=== PATIENT | male | born 2000 | race Caucasian/White ===

== ENCOUNTER 2022-10-15 17:45 | Inpatient (IN) ==
--- NOTE | 2022-10-15 18:00 | ED Triage Note ---
Date of Service October 15, 2022 History of Present Illness This patient was briefly evaluated while in triage. An abbreviated physical exam was performed. This patient is a 22-year-old Male who presents to the ED for evaluation of fevers, joint pain, and nausea with some vomiting for 4-5 days. He was seen here 2 days ago and diagnosed with Lyme arthritis, has been taking doxycycline for this. He has not been able to keep medications down because of the vomiting. States has joint pain in his hips, knees, and ankles, so painful that he cannot walk. He is on medications for ulcerative colitis and also takes Truvada (unable to ask HIV status due to mother being present). Physical Exam CONSTITUTIONAL: No acute distress. Tacky mucus membranes. RESPIRATORY: Clear to auscultation bilaterally. Equal expansion bilaterally. CARDIOVASCULAR: Regular rate and rhythm with no murmurs, rubs or gallops. GASTROINTESTINAL: Soft, mildly tender throughout, normal bowel sounds. NEUROLOGIC: Alert and oriented X 4 with normal affect. Initial orders for labs and / or imaging were placed and patient was placed in the waiting area until a bed is available. Please see further documentation for the full ED course.
[2022-10-15] MEDS ORDERED: SODIUM CHLORIDE 0.9% 1000ML 1,000 ML IV STA (18:02)
[2022-10-15] MEDS ORDERED: ONDANSETRON 4 MG OD TAB PO STA (18:02)
[2022-10-15] MEDS ORDERED: ACETAMINOPHEN 500 MG TAB PO STA (18:02)
[2022-10-15 19:13] LABS: Hemoglobin 11.8 g/dl (14.0-18.0); Mean Corpuscular Hemoglobin 24.8 pg (25.0-34.0); Mean Corpuscular Hgb Conc 34.7 g/dL (32.0-36.0); Mean Corpuscular Volume 71.4 fL (80.0-100.0); Mean Platelet Volume 10.2 fL (9.4-12.4); Platelet Count 450 K/uL (130-400); RDW Coefficient of Variation 14.4 % (11.5-14.5); RDW Standard Deviation 36.8 fL (36.4-46.3); Red Blood Count 4.76 M/uL (4.70-6.10); White Blood Count 20.87 K/ul (4.8-10.8)
[2022-10-15 19:38] LABS: Anion Gap 12 (3-11); BUN Creatinine Ratio 11.9 (10-20); Blood Urea Nitrogen 8 mg/dl (6-23); C Reactive Protein 11.93 mg/dl (0-0.5); Calcium 8.7 mg/dl (8.6-10.3); Carbon Dioxide 21 mmol/L (21-32); Chloride 99 mmol/L (98-107); Est GFR (African American) > 150.0 ml/min; Est GFR (Non-African American) 138.3 ml/min; Glucose 93 mg/dl (70-99(Fasting)); Potassium 3.2 mmol/L (3.5-5.1); Sodium 132 mmol/L (136-145)
[2022-10-15 19:41] LABS: Basophils # (auto) 0.03 K/uL (0-0.2); Basophils % (auto) 0.1 %; Immature Granulocytes % (auto) 0.5 %; Lymphocytes # (auto) 0.99 K/uL (1.2-3.4); Lymphocytes % (auto) 4.7 %; Monocytes # (auto) 0.84 K/uL (0.11-0.59); Neutrophils # (auto) 18.91 K/uL (1.40-6.50); Neutrophils % (auto) 90.7 %; RBC Morphology Unremarkable
--- NOTE | 2022-10-15 19:46 | XRay Report ---
PA CHEST RADIOGRAPH AND UPRIGHT AND SUPINE AP RADIOGRAPHS OF THE ABDOMEN CLINICAL HISTORY: Fevers, nausea, vomiting. COMPARISON STUDY: KUB September 21, 2022. Chest radiograph October 13, 2022. FINDINGS: Lungs are clear. There is no pneumothorax or pleural effusion. Pulmonary vascularity is no rmal. Cardiac size is normal. Mediastinal contours are normal. There is no free air. The bowel gas pa ttern is normal. Left pelvic calcifications are unchanged and favor phleboliths. Visual skeletal stru ctures are unremarkable. IMPRESSION: 1. No free air or evidence of a bowel obstruction. 2. No acute cardiopulmonary findings. ACT 112: Negative or not required by law. Electronically signed by: Pato Rubin M.D. 10/15/2022 7:44 PM
[2022-10-15] MEDS ORDERED: DOXYCYCLINE HYCLATE 100 MG in DEXTROSE 5% 100 ML IV STA (19:51)
[2022-10-15] MEDS ORDERED: SODIUM CHLORIDE 0.9% 1000ML 1,000 ML IV ONE (19:51)
[2022-10-15 19:58] LABS: Alanine Aminotransferase 18 U/L (7-52); Albumin Globulin Ratio 0.9 (0.9-2); Albumin Level 3.6 gm/dl (3.4-5.0); Alkaline Phosphatase 74 U/L (34-104); Aspartate Aminotransferase 15 U/L (13-39); Bilirubin,Total 0.7 mg/dl (0.2-1.0); Lipase 1219 U/L (11-82); Total Protein 7.6 gm/dl (6.0-8.3); Troponin I High Sensitivity 140.6 pg/ml (0-20)
[2022-10-15 20:01] LABS: Adenovirus PCR Not Detected (NotDetected); Bordetella parapertussis PCR Not Detected (NotDetected); Bordetella pertussis PCR Not Detected (NotDetected); Chlamydia pneumoniae PCR Not Detected (NotDetected); Coronavirus 229E PCR Not Detected (NotDetected); Coronavirus CoV-2 (COVID19)PCR Not Detected (NotDetected); Coronavirus HKU1 PCR Not Detected (NotDetected); Coronavirus NL63 PCR Not Detected (NotDetected); Coronavirus OC43PCR Not Detected (NotDetected); Human Metapneumovirus PCR Not Detected (NotDetected); Influenza A PCR Not Detected (NotDetected); Influenza B PCR Not Detected (NotDetected); Mycoplasma pneumoniae PCR Not Detected (NotDetected); Parainfluenza Virus 1 PCR Not Detected (NotDetected); Parainfluenza Virus 2 PCR Not Detected (NotDetected); Parainfluenza Virus 3 PCR Not Detected (NotDetected); Parainfluenza Virus 4 PCR Not Detected (NotDetected); Respiratory Syncytial VirusPCR Not Detected (NotDetected); Rhinovirus/Enterovirus PCR Not Detected (NotDetected)
[2022-10-15 20:14] LABS: Appearance Urine Clear (Clear); Blood Urine Negative (Negative); Color Urine Orange; Epithelial Cell Urine Auto >30 /lpf (0-5); Glucose Urine UA Negative (Negative); Ketones Urine 3+ (Negative); Leukocyte Esterase Urine 1+ (Negative); Nitrite Urine Positive (Negative); Protein Urine 1+ (Negative); RBC Urine Automated 0-4 /hpf (0-4); Specific Gravity Urine 1.026 (1.000-1.030); Urobilinogen Urine Negative (Negative); WBC Urine Automated >30 /hpf (0-5)
[2022-10-15] MEDS ORDERED: CEFEPIME 2,000 MG/20 ML VIAL IV STA (20:17)
[2022-10-15] MEDS ORDERED: VANCOMYCIN HCL 1,000 MG in SODIUM CHLORIDE 0.9% 250 ML IV STA (20:17)
[2022-10-15] MEDS ORDERED: VANCOMYCIN CONSULT ACTIVE PRN (20:17)
[2022-10-15 20:20] LABS: Bilirubin Urine 1+ (Negative)
--- NOTE | 2022-10-15 20:28 | Emergency Department Note ---
Impression & Plan Fever, Sepsis, Acute UTI (urinary tract infection), Acute pancreatitis, Non-ST elevation CT (NSTEMI), Elevated procalcitonin, Leukocytosis ED Provider Note HISTORY OF PRESENT ILLNESS: Patient is a 22-year-old male presenting with recurrent fever and body aches. Patient reports he been having recurrent fevers for the last 6 days. He is also been complaining of generalized arthralgias and abdominal pain. He was seen in the emergency department 2 days ago and diagnosed with Lyme's disease. He reports he has been unable to tolerate his doxycycline secondary to recurrent episodes of vomiting. He reports his temperatures been up to 103. He has developed a diffuse headache throughout the weekend, but denies any change in vision. Denies any pain with range of motion of the neck. He denies any recent exposure to sick contacts. He has a history of Crohn's disease and is on mesalamine and steroids. He reports that he has been vomiting up his steroids over the last few days. ROS: as above PHYSICAL EXAM: Constitutional: Patient appears in mild distress. Patient is ill-appearing HENT: Head: Normocephalic and atraumatic. Eyes: EOMI, PERRL Mouth/Throat: Mucous membranes dry. Neck: Trachea midline. Neck supple. Full range of motion of the neck without meningismus Cardiovascular: Tachycardic with regular rhythm. No murmurs, rubs or gallops. Intact distal pulses. Pulmonary/Chest: No respiratory distress. Breath sounds clear and equal bilaterally. No wheezes or rales. Abdominal: BS +. Abdomen soft, no rebound or guarding. Generalized TTP Musculoskeletal: No edema, tenderness or deformity noted. Skin: Warm and dry. No rash, erythema, pallor or cyanosis Psychiatric: Appropriate mood and affect for situation. Neurological: Alert and keenly responsive. CN II-XII grossly intact, moving all extremities equally and fully. MDM: - Vitals signs showed fever and tachycardia. - History obtained via patient. Patient presents with recurrent fevers and body aches. Patient reports he has been having recurrent fevers for the last 6 days. Reports generalized arthralgias and abdominal pain. He has been unable to tolerate oral intake secondary to recurrent episodes of vomiting. His tempera tures up to 103 earlier today. - Chronic conditions affecting care: Crohn's disease - Differential diagnoses include, but are not limited to: pneumonia; UTI; viral syndrome; cholecystitis; appendicitis - Order placed for continuous cardiac monitoring. At this time, monitor showed rate of 103 bpm with normal sinus rhythm, per my interpretation. - External medical records reviewed. Showed positive Lyme IgG. - EKG reviewed by myself showed normal sinus rhythm. Rate tachycardic at 119 bpm. No acute ischemic changes. QTc 410. No evidence of heart block. - Laboratory workup interpreted by myself showed leukocytosis (WBC 20.87) with left shift; thrombocytosis (plt 450); elevated ESR (75); hypokalemia (K 3.2); hyponatremia (Na 132); elevated anion gap (12 - likely from dehydration); normal glucose; normal creatinine; normal lactate; normal liver function tests; elevated CRP (11.93); elevated troponin (140.6); elevated lipase (1219) - UA positive for leukocyte esterase and nitrites. Also has ketonuria. - Upper respiratory panel negative. - CXR negative for acute pneumonia, per my interpretation. - Given patient's abdominal pain symptoms, CT abdomen/pelvis with IV contrast ordered and showed evidence of acute pancreatitis. - Blood cultures obtained. - Patient given 1g IV tylenol, 4 mg IV zofran and 1L NS in ER. Ordered an additional 1L NS and empiric antibiotic treatment with IV vancomycin, IV cefepime and IV doxycycline. - Discussion was had with social welfare administrator about patient's case and need for admission. - Hospitalist, Dr. Hopkins, consulted for admission. - Patient admitted to [facility] for further evaluation and management. I provided 46 minutes of critical care time to this patient's care outside of billable procedures ASSESSMENT AND PLAN: Diagnosis: sepsis; abdominal pain; pancreatitis; NSTEMI; elevated procalcitonin; leukocytosis; tachycardia; hypokalemia; UTI Plan: admit Past Med/Surg History Medical History No significant past medical history Surgical History No significant past surgical history Social History (Updated 10/12/21 @ 15:25 by Andrew Acosta) Smoking Status: Current some day smoker Tobacco Type: E-cigarettes / Vaping marital status: Single current occupational status: student Feels Safe at Home: Yes Allergies Allergies Allergy/AdvReac Type Severity Reaction Status Date / Time No Known Allergies Allergy Verified 10/13/22 19:43 Home Meds Home Medications Medication Instructions Recorded Confirmed acetaminophen 500 mg tablet 500 - 1,000 mg PO DIRECTED PRN 10/13/22 10/15/22 (Tylenol Extra Strength) PAIN/FEVER budesonide 3 mg 9 mg PO QAM 10/13/22 10/15/22 capsule,delayed,extended release emtricitabine 200 mg-tenofovir 1 tab PO HS 10/13/22 10/15/22 disoproxil fumarate 300 mg tablet mesalamine 1.2 gram tablet,delayed 4.8 g PO QDL 10/13/22 10/15/22 release Previous Rx's Medication Instructions Recorded doxycycline hyclate 100 mg capsule 100 mg PO BID 14 days #28 caps 10/13/22 Results & Data (ED) Vital Signs Vital Signs - 24 hr 10/15/22 17:46 10/15/22 19:04 10/15/22 20:39 Temperature 39 C H 38.2 C H Temperature Source Temporal Artery Scan Oral Pulse Rate 129 H 109 H Respiratory Rate 20 Respiratory Effort / Characteristics Non-Labored Spontaneous Respiratory Depth Normal Blood Pressure 103/55 L Blood Pressure Mean 71 Pulse Oximetry 98 Oxygen Delivery Method Room Air Sepsis Recent Fever Within 48 Hours Yes Sepsis New/Unexplained Change in Mental Status No Sepsis Action Taken by Nursing Adv Provider Notified Laboratory Data 10/15/22 18:50 10/15/22 18:50 Lab Results 10/15/22 10/15/22 10/15/22 Range/Units 18:50 18:50 18:50 WBC 20.87 H (4.8-10.8) K/ul RBC 4.76 (4.70-6.10) M/uL Hgb 11.8 L (14.0-18.0) g/dl Hct 34.0 L (42.0-52.0) % MCV 71.4 L (80.0-100.0) fL MCH 24.8 L (25.0-34.0) pg MCHC 34.7 (32.0-36.0) g/dL RDW Std Deviation 36.8 (36.4-46.3) fL RDW Coeff of Richi 14.4 (11.5-14.5) % Plt Count 450 H (130-400) K/uL MPV 10.2 (9.4-12.4) fL Immature Gran % (Auto) 0.5 % Neut % (Auto) 90.7 % Lymph % (Auto) 4.7 % [place] % (Auto) 4.0 % Eos % (Auto) 0.0 % Baso % (Auto) 0.1 % Neut # (Auto) 18.91 H (1.40-6.50) K/uL Lymph # (Auto) 0.99 L (1.2-3.4) K/uL [place] # (Auto) 0.84 H (0.11-0.59) K/uL Eos # (Auto) 0.00 (0-0.50) K/uL Baso # (Auto) 0.03 (0-0.2) K/uL Immature Gran # (Auto) 0.10 (0.01-0.20) K/uL RBC Morphology Unremarkable ESR (0-15) mm/hr Sodium 132 L (136-145) mmol/L Potassium 3.2 L (3.5-5.1) mmol/L Chloride 99 (98-107) mmol/L Carbon Dioxide 21 (21-32) mmol/L Anion Gap 12 H (3-11) BUN 8 (6-23) mg/dl Creatinine 0.67 (0.6-1.4) mg/dl Est Cr Clr Drug Dosing Not Reportable Est GFR ( Amer) > 150.0 ml/min Est GFR (Non-Af Amer) 138.3 ml/min BUN/Creatinine Ratio 11.9 (10-20) Glucose 93 (70-99(Fasting)) mg/dl Lactate 1.0 (0.4-2.0) mmol/L Calcium 8.7 (8.6-10.3) mg/dl Total Bilirubin 0.7 (0.2-1.0) mg/dl AST 15 (13-39) U/L ALT 18 (7-52) U/L Alkaline Phosphatase 74 (34-104) U/L Troponin I High Sens 140.6 H* (0-20) pg/ml C-Reactive Protein 11.93 H (0-0.5) mg/dl Total Protein 7.6 (6.0-8.3) gm/dl Albumin 3.6 (3.4-5.0) gm/dl Globulin 4.0 (2.5-4.0) gm/dl Albumin/Globulin Ratio 0.9 (0.9-2) Lipase 1219 H (11-82) U/L Procalcitonin (0-0.5) ng/ml Urine Color Urine Appearance (Clear) Urine pH (4.5-7.5) Ur Specific [place] (1.000-1.030) Urine Protein (Negative) Urine Glucose (UA) (Negative) Urine Ketones (Negative) Urine Blood (Negative) Urine Nitrite (Negative) Urine Bilirubin (Negative) Urine Urobilinogen (Negative) Ur Leukocyte Esterase (Negative) Urine WBC (Auto) (0-5) /hpf Urine RBC (Auto) (0-4) /hpf U Hyaline Cast (Auto) (0-5) /lpf U Epithel Cells (Auto) (0-5) /lpf Urine Bacteria (Auto) (Negative) Ur Renal Epithelial Cell Adenovirus (PCR) (NotDetected) B. pertussis DNA (PCR) (NotDetected) B.parapertussis DNA PCR (NotDetected) C. pneumoniae DNA (PCR) (NotDetected) Coronavirus OC43 (PCR) (NotDetected) Coronavirus HKU1 (PCR) (NotDetected) Coronavirus 229E (PCR) (NotDetected) SARS-CoV-2 (PCR) (NotDetected) Coronavirus NL63 (PCR) (NotDetected) Human Metapneumovir PCR (NotDetected) Influenza Type A (PCR) (NotDetected) Influenza Type B (PCR) (NotDetected) M. pneumoniae (PCR) (NotDetected) Parainfluenza 1 (PCR) (NotDetected) Parainfluenza 2 (PCR) (NotDetected) Parainfluenza 3 (PCR) (NotDetected) Parainfluenza 4 (PCR) (NotDetected) RSV (PCR) (NotDetected) Entero/Rhino (PCR) (NotDetected) 10/15/22 10/15/22 10/15/22 Range/Units 18:50 18:50 18:50 WBC (4.8-10.8) K/ul RBC (4.70-6.10) M/uL Hgb (14.0-18.0) g/dl Hct (42.0-52.0) % MCV (80.0-100.0) fL MCH (25.0-34.0) pg MCHC (32.0-36.0) g/dL RDW Std Deviation (36.4-46.3) fL RDW Coeff of Richi (11.5-14.5) % Plt Count (130-400) K/uL MPV (9.4-12.4) fL Immature Gran % (Auto) % Neut % (Auto) % Lymph % (Auto) % [place] % (Auto) % Eos % (Auto) % Baso % (Auto) % Neut # (Auto) (1.40-6.50) K/uL Lymph # (Auto) (1.2-3.4) K/uL [place] # (Auto) (0.11-0.59) K/uL Eos # (Auto) (0-0.50) K/uL Baso # (Auto) (0-0.2) K/uL Immature Gran # (Auto) (0.01-0.20) K/uL RBC Morphology ESR 75 H (0-15) mm/hr Sodium (136-145) mmol/L Potassium (3.5-5.1) mmol/L Chloride (98-107) mmol/L Carbon Dioxide (21-32) mmol/L Anion Gap (3-11) BUN (6-23) mg/dl Creatinine (0.6-1.4) mg/dl Est Cr Clr Drug Dosing Est GFR ( Amer) ml/min Est GFR (Non-Af Amer) ml/min BUN/Creatinine Ratio (10-20) Glucose (70-99(Fasting)) mg/dl Lactate (0.4-2.0) mmol/L Calcium (8.6-10.3) mg/dl Total Bilirubin (0.2-1.0) mg/dl AST (13-39) U/L ALT (7-52) U/L Alkaline Phosphatase (34-104) U/L Troponin I High Sens (0-20) pg/ml C-Reactive Protein (0-0.5) mg/dl Total Protein (6.0-8.3) gm/dl Albumin (3.4-5.0) gm/dl Globulin (2.5-4.0) gm/dl Albumin/Globulin Ratio (0.9-2) Lipase (11-82) U/L Procalcitonin 1.63 H (0-0.5) ng/ml Urine Color Urine Appearance (Clear) Urine pH (4.5-7.5) Ur Specific [place] (1.000-1.030) Urine Protein (Negative) Urine Glucose (UA) (Negative) Urine Ketones (Negative) Urine Blood (Negative) Urine Nitrite (Negative) Urine Bilirubin (Negative) Urine Urobilinogen (Negative) Ur Leukocyte Esterase (Negative) Urine WBC (Auto) (0-5) /hpf Urine RBC (Auto) (0-4) /hpf U Hyaline Cast (Auto) (0-5) /lpf U Epithel Cells (Auto) (0-5) /lpf Urine Bacteria (Auto) (Negative) Ur Renal Epithelial Cell Adenovirus (PCR) Not Detected (NotDetected) B. pertussis DNA (PCR) Not Detected (NotDetected) B.parapertussis DNA PCR Not Detected (NotDetected) C. pneumoniae DNA (PCR) Not Detected (NotDetected) Coronavirus OC43 (PCR) Not Detected (NotDetected) Coronavirus HKU1 (PCR) Not Detected (NotDetected) Coronavirus 229E (PCR) Not Detected (NotDetected) SARS-CoV-2 (PCR) Not Detected (NotDetected) Coronavirus NL63 (PCR) Not Detected (NotDetected) Human Metapneumovir PCR Not Detected (NotDetected) Influenza Type A (PCR) Not Detected (NotDetected) Influenza Type B (PCR) Not Detected (NotDetected) M. pneumoniae (PCR) Not Detected (NotDetected) Parainfluenza 1 (PCR) Not Detected (NotDetected) Parainfluenza 2 (PCR) Not Detected (NotDetected) Parainfluenza 3 (PCR) Not Detected (NotDetected) Parainfluenza 4 (PCR) Not Detected (NotDetected) RSV (PCR) Not Detected (NotDetected) Entero/Rhino (PCR) Not Detected (NotDetected) 10/15/22 Range/Units 19:40 WBC (4.8-10.8) K/ul RBC (4.70-6.10) M/uL Hgb (14.0-18.0) g/dl Hct (42.0-52.0) % MCV (80.0-100.0) fL MCH (25.0-34.0) pg MCHC (32.0-36.0) g/dL RDW Std Deviation (36.4-46.3) fL RDW Coeff of Richi (11.5-14.5) % Plt Count (130-400) K/uL MPV (9.4-12.4) fL Immature Gran % (Auto) % Neut % (Auto) % Lymph % (Auto) % [place] % (Auto) % Eos % (Auto) % Baso % (Auto) % Neut # (Auto) (1.40-6.50) K/uL Lymph # (Auto) (1.2-3.4) K/uL [place] # (Auto) (0.11-0.59) K/uL Eos # (Auto) (0-0.50) K/uL Baso # (Auto) (0-0.2) K/uL Immature Gran # (Auto) (0.01-0.20) K/uL RBC Morphology ESR (0-15) mm/hr Sodium (136-145) mmol/L Potassium (3.5-5.1) mmol/L Chloride (98-107) mmol/L Carbon Dioxide (21-32) mmol/L Anion Gap (3-11) BUN (6-23) mg/dl Creatinine (0.6-1.4) mg/dl Est Cr Clr Drug Dosing Est GFR ( Amer) ml/min Est GFR (Non-Af Amer) ml/min BUN/Creatinine Ratio (10-20) Glucose (70-99(Fasting)) mg/dl Lactate (0.4-2.0) mmol/L Calcium (8.6-10.3) mg/dl Total Bilirubin (0.2-1.0) mg/dl AST (13-39) U/L ALT (7-52) U/L Alkaline Phosphatase (34-104) U/L Troponin I High Sens (0-20) pg/ml C-Reactive Protein (0-0.5) mg/dl Total Protein (6.0-8.3) gm/dl Albumin (3.4-5.0) gm/dl Globulin (2.5-4.0) gm/dl Albumin/Globulin Ratio (0.9-2) Lipase (11-82) U/L Procalcitonin (0-0.5) ng/ml Urine Color [place] Urine Appearance Clear (Clear) Urine pH 6.0 (4.5-7.5) Ur Specific [place] 1.026 (1.000-1.030) Urine Protein 1+ H (Negative) Urine Glucose (UA) Negative (Negative) Urine Ketones 3+ H (Negative) Urine Blood Negative (Negative) Urine Nitrite Positive A (Negative) Urine Bilirubin 1+ H (Negative) Urine Urobilinogen Negative (Negative) Ur Leukocyte Esterase 1+ H (Negative) Urine WBC (Auto) >30 H (0-5) /hpf Urine RBC (Auto) 0-4 (0-4) /hpf U Hyaline Cast (Auto) 10-30 H (0-5) /lpf U Epithel Cells (Auto) >30 H (0-5) /lpf Urine Bacteria (Auto) 1+ H (Negative) Ur Renal Epithelial Cell Not Reportable Adenovirus (PCR) (NotDetected) B. pertussis DNA (PCR) (NotDetected) B.parapertussis DNA PCR (NotDetected) C. pneumoniae DNA (PCR) (NotDetected) Coronavirus OC43 (PCR) (NotDetected) Coronavirus HKU1 (PCR) (NotDetected) Coronavirus 229E (PCR) (NotDetected) SARS-CoV-2 (PCR) (NotDetected) Coronavirus NL63 (PCR) (NotDetected) Human Metapneumovir PCR (NotDetected) Influenza Type A (PCR) (NotDetected) Influenza Type B (PCR) (NotDetected) M. pneumoniae (PCR) (NotDetected) Parainfluenza 1 (PCR) (NotDetected) Parainfluenza 2 (PCR) (NotDetected) Parainfluenza 3 (PCR) (NotDetected) Parainfluenza 4 (PCR) (NotDetected) RSV (PCR) (NotDetected) Entero/Rhino (PCR) (NotDetected) Administered Medications Doxycycline Hyclate 100 mg/ (Dextrose) 110 mls @ 50 mls/hr IV NOW STA Stop: 10/15/22 22:02 Last Admin: 10/15/22 20:35 Dose: 50 mls/hr Documented By: FRANCIS Vancomycin HCl 1,000 mg/ (Sodium Chloride) 270 mls @ 200 mls/hr IV NOW STA; Protocol Stop: 10/15/22 21:37 Last Admin: 10/15/22 20:49 Dose: 200 mls/hr Documented By: Discontinued Medications Acetaminophen (Acetaminophen 500 Mg Tab) 1,000 mg PO NOW STA Stop: 10/15/22 18:03 Last Admin: 10/15/22 19:08 Dose: 1,000 mg Documented By: FRANCIS Sodium Chloride (Nss 1000ml) 1,000 mls @ 999 mls/hr IV .Q1H1M STA Stop: 10/15/22 19:02 Last Infusion: 10/15/22 20:12 Dose: 0 mls/hr Documented By: Admin: 10/15/22 19:11 Dose: 999 mls/hr Documented By: FRANCIS Ioversol (Optiray 350 100ml) 95 ml IV ONCE ONE Stop: 10/15/22 20:32 Last Admin: 10/15/22 20:31 Dose: 95 ml Documented By: KOBI Ondansetron HCl (Ondansetron 4 Mg Od Tab) 4 mg PO NOW STA Stop: 10/15/22 18:03 Last Admin: 10/15/22 19:08 Dose: 4 mg Documented By: FRANCIS Imaging Data Radiologist's Impression: Chest/Abdomen X-ray 10/15/22 18:02 PA CHEST RADIOGRAPH AND UPRIGHT AND SUPINE AP RADIOGRAPHS OF THE ABDOMEN CLINICAL HISTORY: Fevers, nausea, vomiting. COMPARISON STUDY: KUB September 21, 2022. Chest radiograph October 13, 2022. FINDINGS: Lungs are clear. There is no pneumothorax or pleural effusion. Pulmonary vascularity is normal. Cardiac size is normal. Mediastinal contours are normal. There is no free air. The bowel gas pattern is normal. Left pelvic calcifications are unchanged and favor phleboliths. Visual skeletal structures are unremarkable. IMPRESSION: 1. No free air or evidence of a bowel obstruction. 2. No acute cardiopulmonary findings. ACT 112: Negative or not required by law. Electronically signed by: Pato Rubin M.D. 10/15/2022 7:44 PM Abdomen/Pelvis CT 10/15/22 20:06 CT OF THE ABDOMEN AND PELVIS WITH CONTRAST CLINICAL HISTORY: Abdominal pain; vomiting; elevated lipase; fever. COMPARISON STUDY: Chest radiograph and abdominal series performed earlier today. TECHNIQUE: Following IV administration of 95 mL of Optiray, axial images of the abdomen and pelvis were obtained from the lung bases to the proximal femurs. Images were reviewed in the axial, sagittal, and coronal planes. IV contrast was administered without complication. Automated exposure control was utilized for the study. A dose lowering technique was utilized adhering to the principles of ALARA. CT DOSE: 292.14 mGy.cm FINDINGS: Lung bases are unremarkable. No pneumatosis, free air or portal venous gas is present. The liver, adrenal glands and kidneys are unremarkable. Mild splenomegaly is noted. Slight prominence of the bilateral collecting systems is noted without definite hydronephrosis. There are no urinary calculi. No biliary or pancreatic ductal dilatation is present. Small to moderate amount of peripancreatic fluid is noted along the inferior aspect of the pancreatic body and tail. The pancreas enhances homogeneously. No well-defined peripancreatic fluid collection is noted. Fluid extends within the left anterior pararenal space. The appendix is unremarkable. Small and large bowel are mildly fluid-filled. Prominent mucosal enhancement of the cecum and ascending colon as well as the rectum is noted. Major vasculature is patent. Prominent ileocolic lymph nodes are probably reactive. Index node measures 1.5 x 1.1 cm. IMPRESSION: 1. Mild to moderate peripancreatic fluid. Given elevated lipase, the findings are suggestive of acute pancreatitis. No evidence for gland necrosis. No peripancreatic fluid collections. 2. Normal appendix. No bowel obstruction. Mildly fluid-filled small and large bowel with possible mild wall thickening of the cecum, ascending colon and rectum. A mild nonspecific proctocolitis cannot be excluded. 3. Mild splenomegaly. ACT 112: Negative or not required by law. Electronically signed by: Pato Rubin M.D. 10/15/2022 8:45 PM Discharge Plan Visit Data Chief Complaint: Illness Stated Complaint: FEVER,JOINT PAIN,VOMIT,ABDOMINAL PAIN ED Provider: Pebbles Stovall Discharge Problem: Fever, Sepsis, Acute UTI (urinary tract infection), Acute pancreatitis, Non-ST elevation CT (NSTEMI), Elevated procalcitonin, Leukocytosis Forms Stand Alone Forms: My [facility] [employer] Prescriptions Prescriptions: No Action acetaminophen [Tylenol Extra Strength] 500 mg Tablet 500 - 1,000 mg PO DIRECTED PRN (Reason: PAIN/FEVER) budesonide 3 mg capsule,delayed,extend.release 9 mg PO QAM emtricitabine-tenofovir (TDF) 200-300 mg tablet 1 tab PO HS mesalamine 1.2 gram tablet,delayed release (DR/EC) 4.8 g PO QDL doxycycline hyclate 100 mg capsule 100 mg PO BID 14 Days Qty: 28 0RF Referrals Referrals: [facility] [Primary Care Provider] -
[2022-10-15] MEDS ORDERED: OPTIRAY 350 100ml IV ONE (20:31)
[2022-10-15 20:42] LABS: Bacteria Urine Automated 1+ (Negative)
--- NOTE | 2022-10-15 20:47 | CT Scan Report ---
CT OF THE ABDOMEN AND PELVIS WITH CONTRAST CLINICAL HISTORY: Abdominal pain; vomiting; elevated lipase; fever. COMPARISON STUDY: Chest radiograph and abdominal series performed earlier today. TECHNIQUE: Following IV administration of 95 mL of Optiray, axial images of the abdomen and pelvis we re obtained from the lung bases to the proximal femurs. Images were reviewed in the axial, sagittal, and coronal planes. IV contrast was administered without complication. Automated exposure control wa s utilized for the study. A dose lowering technique was utilized adhering to the principles of ALARA . CT DOSE: 292.14 mGy.cm FINDINGS: Lung bases are unremarkable. No pneumatosis, free air or portal venous gas is present. The liver, adrenal glands and kidneys are unremarkable. Mild splenomegaly is noted. Slight prominence of the bilateral collecting systems is noted without definite hydronephrosis. There are no urinary calculi. No biliary or pancreatic ductal dilatation is present. Small to moderat e amount of peripancreatic fluid is noted along the inferior aspect of the pancreatic body and tail. The pancreas enhances homogeneously. No well-defined peripancreatic fluid collection is noted. Fluid extends within the left anterior pararenal space. The appendix is unremarkable. Small and large bowel are mildly fluid-filled. Prominent mucosal enhancement of the cecum and ascending colon as well as t he rectum is noted. Major vasculature is patent. Prominent ileocolic lymph nodes are probably reactiv e. Index node measures 1.5 x 1.1 cm. IMPRESSION: 1. Mild to moderate peripancreatic fluid. Given elevated lipase, the findings are suggestive of acute pancreatitis. No evidence for gland necrosis. No peripancreatic fluid collections. 2. Normal appendix. No bowel obstruction. Mildly fluid-filled small and large bowel with possible mil d wall thickening of the cecum, ascending colon and rectum. A mild nonspecific proctocolitis cannot b e excluded. 3. Mild splenomegaly. ACT 112: Negative or not required by law. Electronically signed by: Pato Rubin M.D. 10/15/2022 8:45 PM
[2022-10-15] MEDS ORDERED: IBUPROFEN 600 MG TAB PO STA (21:45)
--- NOTE | 2022-10-15 21:58 | History & Physical Report ---
Date of Service October 15, 2022 Assessment & Plan (1) Acute pancreatitis: Plan: 22-year-old male with recent diagnosis of UC (mesalamine, budesonide), and positive Lyme IgG serology on doxycycline, now presenting to the ED with persistent fever, vomiting. Admitted to the hospital for management of acute pancreatitis, Lyme arthritis. Acute pancreatitis -Lipase 1192. Leukocytosis 20.87. -Possibly related to doxycycline, as doxycycline, in rare cases, has been known to induce acute pancreatitis. -Could also be related to mesalamine, as this is known to happen in the first days to weeks after initiation. -Unfortunately, did not investigate patient's alcohol consumption. Recommend discussing with patient today. * Admitted to [facility] * N.p.o. until breakfast (low-fat diet) * IV LR maintenance fluid@150 mL/h. * As needed IV Zofran for nausea * As needed IV Dilaudid for pain control. Lyme disease/Lyme arthritis -Discovered 2 days ago after presenting for persistent vomiting, and fever. -Started on doxycycline but unclear if patient received doses due to fatigue, emesis. -Now reporting headache, hip pain, and right knee pain on admission. * IV ceftriaxone 2 g daily. Continue IV therapy, as doxycycline may have precipitated pancreatitis. Elevated troponin -Troponin 140.5 on admission. -Denies chest pain. EKG sinus tachycardia without acute ischemic changes or evidence of heart block. -Low suspicion for ACS. Possible pericarditis secondary to Lyme disease, though no ST changes on EKG, diffuse or otherwise. * Repeat troponin in a.m. Trend if elevated. Ulcerative colitis -Recently diagnosed, per patient. On mesalamine, budesonide daily. -Has been unable to take the past few days due to recent illness. * Continue mesalamine, budesonide. Code: Full code Dispo: Med-Surg FEN/GI: NPO. IV LR@150 mL/h DVT Prophylaxis: PT/OT: Consults: None (2) Lyme arthritis: (3) Sepsis: (4) Ulcerative colitis: History of Present Illness Primary Care Provider: [facility] Patrice is a 22-year-old man with a history of recently diagnosed ulcerative colitis (budesonide, mesalamine), who presented to the emergency room today with recurrent fever and body aches x6 days. He was seen in the emergency room 2 days ago, where he was diagnosed with Lyme disease (positive IgG) and sent home on doxycycline. He returns today with the aforementioned fevers, stating he was unable to tolerate the doxycycline due to vomiting. Self-reported peak temp of 103. He now also reports a diffuse headache. He denies shortness of breath, chest pain, abdominal pain, diarrhea, dysuria, vision changes, or heart palpitations. He does report new joint pain, in his hips and right knee on admission. In the emergency room, he was found to be febrile and tachycardic. Labs showed WBC 20.87, ESR 75, CRP of 11.93 K+ of 3.2, and lipase of 1219. UA revealed leukocyte esterase and nitrites. Upper respiratory panel was negative, as was the CXR. CT A/P showed evidence of acute pancreatitis. He received 1 g IV Tylenol, IV Zofran 4 mg x 1, and 1 L normal saline bolus x2. Empiric anabiotic therapy was initiated with IV vancomycin, IV cefepime, and IV doxycycline. Allergies Allergy/AdvReac Type Severity Reaction Status Date / Time No Known Allergies Allergy Verified 10/13/22 19:43 Home Medications Medication Instructions Recorded Confirmed Type acetaminophen 500 mg tablet 500 - 1,000 mg PO DIRECTED PRN 10/13/22 10/15/22 History (Tylenol Extra Strength) PAIN/FEVER budesonide 3 mg 9 mg PO QAM 10/13/22 10/15/22 History capsule,delayed,extended release doxycycline hyclate 100 mg capsule 100 mg PO BID 14 days #28 caps 10/13/22 10/15/22 Rx emtricitabine 200 mg-tenofovir 1 tab PO HS 10/13/22 10/15/22 History disoproxil fumarate 300 mg tablet mesalamine 1.2 gram tablet,delayed 4.8 g PO QDL 10/13/22 10/15/22 History release Past Med/Surg History Medical History No significant past medical history Surgical History No significant past surgical history Social History (Updated 10/12/21 @ 15:25 by Andrew Acosta) Smoking Status: Never smoker Tobacco Type: E-cigarettes / Vaping Second Hand Exposure: No; Do You Dip or Chew Tobacco: No; Hx Alcohol Use: Yes Alcohol type: beer Hx Substance Use: Yes Last Used Substance: Unknown Preferred Language: Russian Communication Ability: Effective Toter Required: No Beliefs That Will Affect Care: None marital status: Single Current Living Situation: Parent current occupational status: student Other Information That Helps Us Care for You: No Feels Safe at Home: Yes Safety Concerns: Feels Safe At This Time Assistive Devices: None Review of Systems Review of Systems: All systems reviewed & are unremarkable except as noted in HPI & below Physical Exam Physical Exam: General: No acute distress HEENT: PERRLA. Normal conjunctiva, anicteric sclera. Oropharynx normal. Respiratory: Normal respiratory effort, CTABL. Cardiovascular: RRR without murmurs, gallops, or rubs. No edema. GI: Soft abdomen with normal bowel sounds heard on auscultation. Nontender x4 quadrants Neuro: Alert and oriented x3. Results & Data Results & Data Vital Signs (Past 12 Hours) Vital Signs Temp Pulse Resp BP Pulse Ox O2 Del Method 10/15/22 20:39 38.2 C H 10/15/22 19:04 109 H 10/15/22 17:46 39 C H 129 H 20 103/55 L 98 Room Air Supervising Physician Co-Signing Physician Notes Attending addendum: I have physically seen this patient, have supervised the medical residents activities, and agree with the H&P unless as otherwise noted. Assessment and Plan: Lyme disease/Lyme arthritis- Laboratory found +2 days ago Ceftriaxone 2 g IV daily Doxycycline 100 mg p.o. twice daily being held as concern for possible precipitation of pancreatitis Acute pancreatitis- Lipase 1192 with elevated WBC of 20.87 Follow serial laboratories N.p.o. Zofran 4 mg IV every 6 hours as needed Dilaudid IV as needed for severe pain control Remaining orders and notations as noted Resident Activity Tracking Resident Involvement: Resident Care Provided Care Provided: Adult Hospital Medicine
[2022-10-16] MEDS: VANCOMYCIN HCL 1,000 MG in SODIUM CHLORIDE 0.9% 250 ML IV SCH ×2 (01:05→09:49)
[2022-10-16] MEDS: LACTATED RINGER'S 1,000 ML IV SCH ×2 (03:00→11:28)
[2022-10-16] MEDS ORDERED: HYDROmorphone INJ 0.5 MG/0.5 ML SYR IV PRN (03:08)
[2022-10-16] MEDS: ONDANSETRON INJ 2 MG/ML 2 ML VIAL IV PRN ×2 (03:23→08:56)
[2022-10-16] MEDS: HYDROmorphone INJ 0.5 MG/0.5 ML SYR IV PRN ×3 (03:23→23:46)
[2022-10-16] MEDS ORDERED: cefTRIAXone SODIUM 2,000 MG in DEXTROSE 5% 50 ML IV SCH (06:00)
[2022-10-16 06:45] LABS: Basophils # (auto) 0.02 K/uL (0-0.2); Basophils % (auto) 0.1 %; Eosinophils # (auto) 0.04 K/uL (0-0.50); Eosinophils % (auto) 0.2 %; Hematocrit (blood only) 30.2 % (42.0-52.0); Hemoglobin 10.2 g/dl (14.0-18.0); Immature Granulocytes # (auto) 0.11 K/uL (0.01-0.20); Immature Granulocytes % (auto) 0.6 %; Lymphocytes # (auto) 1.09 K/uL (1.2-3.4); Lymphocytes % (auto) 6.4 %; Mean Corpuscular Hemoglobin 24.3 pg (25.0-34.0); Mean Corpuscular Hgb Conc 33.8 g/dL (32.0-36.0); Mean Corpuscular Volume 71.9 fL (80.0-100.0); Mean Platelet Volume 10.7 fL (9.4-12.4); Monocytes # (auto) 0.92 K/uL (0.11-0.59); Monocytes % (auto) 5.4 %; Neutrophils # (auto) 14.96 K/uL (1.40-6.50); Neutrophils % (auto) 87.3 %; Platelet Count 332 K/uL (130-400); RDW Coefficient of Variation 14.6 % (11.5-14.5); White Blood Count 17.14 K/ul (4.8-10.8)
--- NOTE | 2022-10-16 06:56 | Hospitalist Progress Note ---
Date of Service October 16, 2022 Assessment & Plan (1) Acute pancreatitis: Plan: 22-year-old male with recent diagnosis of UC (mesalamine, budesonide), and positive Lyme IgG serology on doxycycline, now presenting to the ED with persistent fever, vomiting. Admitted to the hospital for management of acute pancreatitis, Lyme arthritis. Acute pancreatitis Lipase 1192. Leukocytosis 20.87. May be related to mesalamine, which she just started within the past month. Patient states he has not been drinking alcohol recently, no signs of gallstones or biliary obstruction, will order studies in the morning. N.p.o. after midnight. IV LR maintenance fluid at 250 mL an hour IV Zofran for nausea as needed and as needed Dilaudid for pain as needed. Lyme disease/Lyme arthritis Discovered 2 days ago after presenting for persistent vomiting, and fever. Arthritis in his in the lower extremity seems most in line with Lyme arthritis at this time. Was initially started on IV ceftriaxone 2 g daily. We will switch back to doxycycline at this time due to broader coverage for anaplasmosis as well as Lyme disease. Elevated troponin Troponin 140.5 on admission. Denies chest pain. EKG sinus tachycardia without acute ischemic changes or evidence of heart block. Low suspicion for ACS. Possible pericarditis secondary to Lyme disease, though no ST changes on EKG, diffuse or otherwise. Peaked at 165. Ulcerative colitis Recently diagnosed, per patient. On mesalamine, budesonide daily. Last took mesalamine on Wednesday. We will hold mesalamine at this time due to possibly contributing to acute pancreatitis. Headache Well-controlled with Tylenol 650 mg every 4 hours. Code: Full code Dispo: Med-Surg FEN/GI: NPO. IV LR@250 mL/h DVT Prophylaxis: PT/OT: Consults: None (2) Lyme arthritis: (3) Sepsis: (4) Ulcerative colitis: Admission and Anticipated Discharge Date Admission Date: October 15, 2022 Supervising Physician Co-Signing Physician Notes I personally examined the patient and verified all costa points of history and e xam, discussed case, and agree with decision making with Dr Landaverde In some pain. Epigastric. Has not been asking for pain medicines. Extensive discussion with patient and family in regards to pancreatitis, etiology, manifestations, treatment. Also extensive discussion on Lyme, possible coinfections, and treatment. Vitals noted, in general he is fatigued and a little bit uncomfortable appearing. Breathing unlabored no accessory muscle use good effort. Skin shows no rashes no pallor or icterus. Abdomen is soft he has significant epigastric tenderness with voluntary (but not involuntary guarding) no rebound. The remainder of his abdomen is mildly tender without guarding rebound or rigidity. CBC, CMP, troponins, CT scan, lipase all reviewed Acute pancreatitisdoes not appear to be gallstone or alcohol mediated, triglyceride levels are pending, with no family history of hypertriglyceridemia I doubt this is the case either. Most likely relates to his ulcerative colitiseither as an autoimmune mechanism, or possibly related to the mesalaminewe will investigate literature to help determine probabilities. It is certainly reasonable to have considered whether or not it is related to the doxycycline, but this seems even less likely especially given the short duration he was on it, and the low likelihood of doxycycline causing pancreatitis. Also, considered whether or not this could be directly related to the Lyme, case reports suggest it can happen, but seems exceedingly rare. IV fluids, pain control (encouraged him to not be stoic in the early esther of things. Lymeafter discussion, in consideration of coinfection's, will DC ceftriaxone and resume doxycyclinethis will allow for more effective treatment of not only Lyme but any other, infections, and exercise differential on the etiology of his pancreatitisassuming that he shows ongoing improvement. Subjective Patient was seen bedside this morning. He states that he has a headache and feels feverish. Patient states that his headache is worse with movement and when he coughs. He also states that he is a little short of breath and feels tight in his chest around his collarbone. He also feels that his eyes are burning. He states this morning when he woke up he had some yellow discharge on the eyes. He states that his joints still hurt from his hips down to his knees and legs. He states that it is better than yesterday but still in significant pain. Review of Systems Review of Systems: All systems reviewed & are unremarkable except as noted in Subjective Physical Exam Physical Exam: General: No acute distress HEENT: PERRLA. Normal conjunctiva, anicteric sclera. Oropharynx normal. Respiratory: Normal respiratory effort, CTABL. Cardiovascular: RRR without murmurs, gallops, or rubs. No edema. GI: Soft abdomen with normal bowel sounds heard on auscultation. Nontender x4 quadrants Neuro: Alert and oriented x3. Results & Data Results & Data Vital Signs (Past 12 Hours) Vital Signs Temp Pulse Pulse Resp BP Pulse Ox O2 Del Method 10/15/22 23:55 Room Air 10/15/22 23:55 36.9 C 83 12 93/83 L 96 Room Air 10/15/22 23:29 83 10/15/22 20:39 38.2 C H 10/15/22 19:04 109 H Resident Activity Tracking Resident Involvement: Resident Care Provided Care Provided: Adult Hospital Medicine
[2022-10-16 07:03] LABS: Anion Gap 8 (3-11); BUN Creatinine Ratio 9.4 (10-20); Blood Urea Nitrogen 6 mg/dl (6-23); Calcium 8.2 mg/dl (8.6-10.3); Carbon Dioxide 23 mmol/L (21-32); Chloride 105 mmol/L (98-107); Creatinine Clr Calc Pharmacy 169.3 ml/min; Est GFR (African American) > 150.0 ml/min; Est GFR (Non-African American) 140.9 ml/min; Glucose 78 mg/dl (70-99(Fasting)); Magnesium 1.6 mg/dl (1.7-2.4); Potassium 3.5 mmol/L (3.5-5.1); Sodium 136 mmol/L (136-145)
[2022-10-16 07:14] LABS: Troponin I High Sensitivity 165.6 pg/ml (0-20)
[2022-10-16] MEDS: MAGNESIUM SULFATE / D5W 1 GM/100 ML BAG IV SCH ×2 (07:41→09:50)
[2022-10-16] MEDS: BUDESONIDE EC 3 MG CAP PO SCH (08:56)
[2022-10-16] MEDS ORDERED: ACETAMINOPHEN 325 MG TAB PO PRN (09:05)
[2022-10-16] MEDS ORDERED: HYDROmorphone INJ 0.5 MG/0.5 ML SYR IV STA (15:25)
--- NOTE | 2022-10-16 19:52 | Billing Data ---
Date of Service October 16, 2022 Coding Level of Care Code 93607 SUB INP/OBS CARE MIN
[2022-10-16] MEDS ORDERED: DOXYCYCLINE HYCLATE 100 MG CAP PO SCH (21:00)
[2022-10-16] MEDS: DOXYCYCLINE HYCLATE 100 MG in DEXTROSE 5% 100 ML IV SCH (21:25)
--- NOTE | 2022-10-17 03:53 | Billing Data ---
Date of Service October 17, 2022 Coding Level of Care Code 74322 INT INP/OBS CARE
--- NOTE | 2022-10-17 05:23 | Electrocardiogram Report ---
Test Reason : Blood Pressure : / mmHG Vent. Rate : 119 BPM Atrial Rate : 119 BPM P-R Int : 122 ms QRS Dur : 078 ms QT Int : 292 ms P-R-T Axes : 078 068 031 degrees QTc Int : 410 ms Sinus tachycardia Possible Left atrial enlargement Borderline ECG No previous ECGs available Confirmed by Scottie Valverde ([id number]) on 10/17/2022 5:22:45 AM Referred By: REFERRED SELF Confirmed By:Scottie Valverde
[2022-10-17 07:03] LABS: Basophils # (auto) 0.01 K/uL (0-0.2); Basophils % (auto) 0.1 %; Eosinophils # (auto) 0.21 K/uL (0-0.50); Eosinophils % (auto) 2.1 %; Hematocrit (blood only) 26.9 % (42.0-52.0); Immature Granulocytes # (auto) 0.03 K/uL (0.01-0.20); Immature Granulocytes % (auto) 0.3 %; Lymphocytes # (auto) 1.87 K/uL (1.2-3.4); Lymphocytes % (auto) 19.1 %; Mean Corpuscular Hemoglobin 24.5 pg (25.0-34.0); Mean Corpuscular Hgb Conc 33.5 g/dL (32.0-36.0); Mean Corpuscular Volume 73.1 fL (80.0-100.0); Mean Platelet Volume 10.6 fL (9.4-12.4); Monocytes # (auto) 0.78 K/uL (0.11-0.59); Neutrophils # (auto) 6.87 K/uL (1.40-6.50); Neutrophils % (auto) 70.4 %; Platelet Count 336 K/uL (130-400); RDW Coefficient of Variation 14.3 % (11.5-14.5); RDW Standard Deviation 37.9 fL (36.4-46.3); Red Blood Count 3.68 M/uL (4.70-6.10); White Blood Count 9.77 K/ul (4.8-10.8)
[2022-10-17 07:26] LABS: Anion Gap 5 (3-11); BUN Creatinine Ratio 8.8 (10-20); Blood Urea Nitrogen 5 mg/dl (6-23); Calcium 8.3 mg/dl (8.6-10.3); Carbon Dioxide 29 mmol/L (21-32); Chloride 103 mmol/L (98-107); Chol HDL Ratio 7.1 (0-5); Cholesterol 78 mg/dl (0-200); Creatinine Clr Calc Pharmacy 190.1 ml/min; Est GFR (African American) > 150.0 ml/min; Est GFR (Non-African American) 147.8 ml/min; Glucose 88 mg/dl (70-99(Fasting)); HDL Cholesterol 11 mg/dl; LDL Cholesterol Calculated 44 mg/dl; Magnesium 2.1 mg/dl (1.7-2.4); Phosphorus 2.7 mg/dl (2.5-4.9); Potassium 3.4 mmol/L (3.5-5.1); Sodium 137 mmol/L (136-145); Triglycerides 113 mg/dl (0-150); VLDL Cholesterol 23 mg/dl (0-30)
[2022-10-17] MEDS: DOXYCYCLINE HYCLATE 100 MG in DEXTROSE 5% 100 ML IV SCH ×2 (08:18→19:38)
--- NOTE | 2022-10-17 08:19 | Hospitalist Progress Note ---
Date of Service October 17, 2022 Assessment & Plan (1) Acute pancreatitis: Plan: Pt is a 22 yo male with recent diagnosis of UC (tx w/ mesalamine and budesonide), and positive lyme IgG serology on doxycycline, now presenting to the ED with persistent fever, vomiting. 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 Acute pancreatitis Lipase 1192, leukocytosis 20.87 upon admission unknown etiology; pt denies recent alcohol use, alk phos and ALT/AST WNL, TG WNL - may be related to mesalamine, which he just started within the past month for his recent dx of UC - pt feeling hungry this AM, advanced diet to low fat - continue IV LR at 250 mL/hr for today, will consider d/c tomorrow pending clinical status IV zofran for nausea as needed and as needed dilaudid for pain as needed. Lyme disease/Lyme arthritis Diagnosed 10/13; lyme IgG pos, IgM equivocal s/p IV ceftriaxone 2 g x1; switch back to doxycycline at this time due to broader coverage for anaplasmosis as well as lyme disease (anaplasma DNA pending) Dysuria - unclear etiology at this point - UA and urine cx upon admission neg; will repeat - unlikely to be STI related as patient denies sexual activity in the previous few months; urine GC ordered to r/o- however, even if positive, pt already s/p ceftriaxone x1 and currently on doxy - pt currently on Truvada for PrEP; per chart review, was tested for HIV within the last month and it was neg - continue to monitor symptoms Elevated troponin 140.5 on admission Denies chest pain; EKG showed sinus tachycardia without acute ischemic changes or evidence of heart block Low suspicion for ACS Peaked at 165 and has since downtrended Ulcerative colitis Recently diagnosed, per patient; On mesalamine and budesonide daily prior to hospitalization Last took mesalamine 10/14; continue to hold at this time due to possibly contributing to acute pancreatitis - pt will need outpatient GI f/u to determine future tx of UC Headache Well-controlled with Tylenol 650 mg every 4 hours Code: Full code Dispo: Med-Surg FEN/GI: Low fat diet, LR @250 mL/hr DVT Prophylaxis: none, low risk- if hospitalization becomes prolonged, will add SCDs PT/OT: none Consults: None (2) Lyme arthritis: (3) Sepsis: (4) Ulcerative colitis: (5) Dysuria: Admission and Anticipated Discharge Date Admission Date: October 15, 2022 Supervising Physician Co-Signing Physician Notes I personally examined the patient and verified all costa points of history and exam, discussed case, and agree with decision making with Dr Rojas abdominal pain has improved (persists but improved), eating better, (+) BM. some burning when urination and a little bit of bloody penile discharge incidentally noted on underwear. no sexual contacts for a few months. Vitals noted, in general he is aao pleasant nad heent nc at mmm abd soft nd (+) epigastric tenderness with mild voluntary guarding far better than yesterday. penis no lesions or skin changes no visible discharge/bleeding Acute pancreatitisdoes not appear to be gallstone or alcohol mediated, triglyceride normal. After review, mesalamine apparently carries about a 1% incidence of pancreatitis, and if it was autoimmune pancreatitis mediated by ulcerative colitis type mechanism, the pancreas would likely appear large overall on imagingmaking mesalamine the most likely. Doxycycline is listed as being able to cause pancreatitis but with no incidence, exceedingly rare, and Lyme only shows pancreatitis and extremely straight case reports (further practicing and [place], we will utilize doxycycline for a lot of different conditions and treat a lot of Lyme, and neither myself nor my colleagues have ever had a situation that seems consistent with doxycycline or Lyme induced pancreatitis). Lymeafter yesterday's discussionresumed doxycycline, tolerating well. Ulcerative colitisstopped mesalaminewill assist in GI follow-up Subjective Pt seen at bedside this AM. He is asking for macedonian toast this morning as he is feeling hungry. He endorse some abdominal pain but improved from previous. His joints (hips, knees, and ankles) are still sore. He also endorses pain at the tip of his penis while urinating that began yesterday. It does not hurt otherwise. He has not noticed any discharge, but he did notice a small amount of blood. He denies recent sexual activity. Review of Systems Review of Systems: All systems reviewed & are unremarkable except as noted in HPI & below Physical Exam Constitutional: NAD. Vitals WNL. Eyes: no conjunctival abnormality Respiratory: CTA bilaterally. No rhonchi, wheezing, or crackles. Non labored breathing. Cardiovascular: RRR. No murmur noted. No LE edema. Gastrointestinal (Abdomen): Tender to palpation of LUQ and epigastric region, soft, +BS. No masses or guarding noted. Skin: no rashes, warm and dry Psychiatric: Alert. Mood and affect congruent. Genitourinary: Performed by attending. As per attestation. Results & Data Results & Data Vital Signs (Past 12 Hours) Vital Signs Temp Pulse Resp BP Pulse Ox O2 Del Method 10/17/22 07:55 37 C 123 H 18 100/64 95 Room Air 10/16/22 20:30 Room Air 10/16/22 21:53 103/63 10/16/22 21:07 37.0 C 73 16 99/62 L 95 Room Air Resident Activity Tracking Resident Involvement: Resident Care Provided Care Provided: Adult Hospital Medicine
[2022-10-17] MEDS: BUDESONIDE EC 3 MG CAP PO SCH (09:57)
[2022-10-17] MEDS: LACTATED RINGER'S 1,000 ML IV SCH ×4 (10:34→23:45)
[2022-10-17 13:57] LABS: Appearance Urine Clear (Clear); Bilirubin Urine Negative (Negative); Blood Urine Negative (Negative); Color Urine Yellow; Glucose Urine UA Negative (Negative); Ketones Urine Negative (Negative); Leukocyte Esterase Urine Negative (Negative); Nitrite Urine Negative (Negative); Protein Urine Negative (Negative); Specific Gravity Urine 1.005 (1.000-1.030); Urobilinogen Urine Negative (Negative); pH Urine 7.5 (4.5-7.5)
[2022-10-17] MEDS: HYDROmorphone INJ 0.5 MG/0.5 ML SYR IV PRN ×2 (18:17→22:35)
--- NOTE | 2022-10-17 19:59 | Billing Data ---
Date of Service October 17, 2022 Coding Level of Care Code 98775 SUB INP/OBS CARE MIN
[2022-10-18] MEDS: LACTATED RINGER'S 1,000 ML IV SCH ×2 (03:15→07:23)
[2022-10-18] MEDS: HYDROmorphone INJ 0.5 MG/0.5 ML SYR IV PRN (05:48)
[2022-10-18 06:08] LABS: Anion Gap 6 (3-11); BUN Creatinine Ratio 10.2 (10-20); Blood Urea Nitrogen 5 mg/dl (6-23); Calcium 8.5 mg/dl (8.6-10.3); Carbon Dioxide 28 mmol/L (21-32); Chloride 107 mmol/L (98-107); Creatinine Clr Calc Pharmacy 221.1 ml/min; Est GFR (African American) > 150.0 ml/min; Est GFR (Non-African American) > 150.0 ml/min; Glucose 89 mg/dl (70-99(Fasting)); Magnesium 1.9 mg/dl (1.7-2.4); Phosphorus 3.6 mg/dl (2.5-4.9); Potassium 3.4 mmol/L (3.5-5.1); Sodium 141 mmol/L (136-145)
[2022-10-18 06:12] LABS: Basophils # (auto) 0.01 K/uL (0-0.2); Basophils % (auto) 0.1 %; Eosinophils # (auto) 0.18 K/uL (0-0.50); Eosinophils % (auto) 2.2 %; Hematocrit (blood only) 28.5 % (42.0-52.0); Hemoglobin 9.4 g/dl (14.0-18.0); Immature Granulocytes # (auto) 0.03 K/uL (0.01-0.20); Immature Granulocytes % (auto) 0.4 %; Lymphocytes # (auto) 2.51 K/uL (1.2-3.4); Lymphocytes % (auto) 30.3 %; Mean Corpuscular Hemoglobin 24.2 pg (25.0-34.0); Mean Corpuscular Volume 73.3 fL (80.0-100.0); Mean Platelet Volume 10.6 fL (9.4-12.4); Monocytes # (auto) 0.38 K/uL (0.11-0.59); Monocytes % (auto) 4.6 %; Neutrophils # (auto) 5.18 K/uL (1.40-6.50); Neutrophils % (auto) 62.4 %; Platelet Count 376 K/uL (130-400); RDW Coefficient of Variation 14.5 % (11.5-14.5); RDW Standard Deviation 38.5 fL (36.4-46.3); Red Blood Count 3.89 M/uL (4.70-6.10); White Blood Count 8.29 K/ul (4.8-10.8)
[2022-10-18] MEDS: BUDESONIDE EC 3 MG CAP PO SCH (07:24)
[2022-10-18] MEDS: DOXYCYCLINE HYCLATE 100 MG in DEXTROSE 5% 100 ML IV SCH (07:29)
--- NOTE | 2022-10-18 08:23 | Hospitalist Progress Note ---
Date of Service October 18, 2022 Assessment & Plan (1) Acute pancreatitis: Plan: Pt is a 22 yo male with recent diagnosis of UC (tx w/ mesalamine and budesonide), and positive lyme IgG serology on doxycycline, now presenting to the ED with persistent fever, vomiting. 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 Acute pancreatitis Lipase 1192, leukocytosis 20.87 upon admission unknown etiology; pt denies recent alcohol use, alk phos and ALT/AST WNL, TG WNL - may be related to mesalamine, which he just started within the past month for his recent dx of UC - pt feeling hungry this AM, advanced diet to low fat - continue IV LR at 250 mL/hr for today, will consider d/c tomorrow pending clinical status IV zofran for nausea as needed and as needed dilaudid for pain as needed. Lyme disease/Lyme arthritis Diagnosed 10/13; lyme IgG pos, IgM equivocal s/p IV ceftriaxone 2 g x1; switch back to doxycycline at this time due to broader coverage for anaplasmosis as well as lyme disease (anaplasma DNA pending) Dysuria - unclear etiology at this point - UA and urine cx upon admission neg; will repeat - unlikely to be STI related as patient denies sexual activity in the previous few months; urine GC ordered to r/o- however, even if positive, pt already s/p ceftriaxone x1 and currently on doxy - pt currently on Truvada for PrEP; per chart review, was tested for HIV within the last month and it was neg - continue to monitor symptoms Elevated troponin 140.5 on admission Denies chest pain; EKG showed sinus tachycardia without acute ischemic changes or evidence of heart block Low suspicion for ACS Peaked at 165 and has since downtrended Ulcerative colitis Recently diagnosed, per patient; On mesalamine and budesonide daily prior to hospitalization Last took mesalamine 10/14; continue to hold at this time due to possibly contributing to acute pancreatitis - pt will need outpatient GI f/u to determine future tx of UC Headache Well-controlled with Tylenol 650 mg every 4 hours Code: Full code Dispo: Med-Surg FEN/GI: Low fat diet, LR @250 mL/hr DVT Prophylaxis: none, low risk- if hospitalization becomes prolonged, will add SCDs PT/OT: none Consults: None (2) Lyme arthritis: (3) Sepsis: (4) Ulcerative colitis: (5) Dysuria: Admission and Anticipated Discharge Date Admission Date: October 15, 2022 Results & Data Results & Data Vital Signs (Past 12 Hours) Vital Signs Temp Pulse Resp BP Pulse Ox O2 Del Method 10/18/22 07:17 36.5 C 70 16 103/64 97 Room Air 10/17/22 20:27 Room Air 10/17/22 21:10 37.1 C 79 16 103/70 98 Room Air
--- NOTE | 2022-10-18 10:35 | Discharge Summary ---
Date of Service October 18, 2022 Admission HPI Per Admitting Provider Patrice is a 22-year-old man with a history of recently diagnosed ulcerative colitis (budesonide, mesalamine), who presented to the emergency room today with recurrent fever and body aches x6 days. He was seen in the emergency room 2 days ago, where he was diagnosed with Lyme disease (positive IgG) and sent home on doxycycline. He returns today with the aforementioned fevers, stating he was unable to tolerate the doxycycline due to vomiting. Self-reported peak temp of 103. He now also reports a diffuse headache. He denies shortness of breath, chest pain, abdominal pain, diarrhea, dysuria, vision changes, or heart palpitations. He does report new joint pain, in his hips and right knee on admission. In the emergency room, he was found to be febrile and tachycardic. Labs showed WBC 20.87, ESR 75, CRP of 11.93 K+ of 3.2, and lipase of 1219. UA revealed leukocyte esterase and nitrites. Upper respiratory panel was negative, as was the CXR. CT A/P showed evidence of acute pancreatitis. He received 1 g IV Tylenol, IV Zofran 4 mg x 1, and 1 L normal saline bolus x2. Empiric anabiotic therapy was initiated with IV vancomycin, IV cefepime, and IV doxycycline. Admission Exam Per Admitting Provider General: No acute distress HEENT: PERRLA. Normal conjunctiva, anicteric sclera. Oropharynx normal. Respiratory: Normal respiratory effort, CTABL. Cardiovascular: RRR without murmurs, gallops, or rubs. No edema. GI: Soft abdomen with normal bowel sounds heard on auscultation. Nontender x4 quadrants Neuro: Alert and oriented x3. Principal Diagnosis acute pancreatitis Discharge Exam Constitutional: well appearing, no acute distress HEENT: normocephalic, no conjunctival injection CV: regular rhythm, no murmur, no LE edema Respiratory: Clear to auscultation bilaterally. No rhonchi, wheezes, or crack les. No increased work of breathing GI: soft, nondistended, mildly tender in LLQ, positive bowel sounds MSK: no gross deformities noted Skin: warm, dry, no rashes Neuro: alert, oriented, no FND noted Discharge Data Allergies Allergy/AdvReac Type Severity Reaction Status Date / Time No Known Allergies Allergy Verified 10/13/22 19:43 Consultations 10/15/22 20:25 ED Decision to Admit Stat Ordered Studies 10/15/22 20:06 CT Abd and Pelvis [CT abd pelvis IV con only] Stat IMPRESSION: 1. Mild to moderate peripancreatic fluid. Given elevated lipase, the findings are suggestive of acute pancreatitis. No evidence for gland necrosis. No peripancreatic fluid collections. 2. Normal appendix. No bowel obstruction. Mildly fluid-filled small and large bowel with possible mild wall thickening of the cecum, ascending colon and rectum. A mild nonspecific proctocolitis cannot be excluded. 3. Mild splenomegaly. Hospital Course (1) Acute pancreatitis: Pt is a 22 yo male with recent diagnosis of UC (tx w/ mesalamine and budesonide), and positive lyme IgG serology on doxycycline, now presenting to the ED with persistent fever, vomiting. 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 Acute pancreatitis Lipase 1192, leukocytosis 20.87 upon admission unknown etiology; pt denies recent alcohol use, alk phos and ALT/AST WNL, TG WNL - may be related to mesalamine, which he just started within the past month for his recent dx of UC - pain well controlled with minimal medications; recommend tylenol/NSAIDs in addition to oxycodone if needed for further pain upon discharge Lyme disease/Lyme arthritis Diagnosed 10/13; lyme IgG pos, IgM equivocal s/p IV ceftriaxone 2 g x1; switched back to doxycycline during this ho spitalization - recommend continuation for 14 days total tx Dysuria- resolved - UA and urine cx upon admission neg - unlikely to be STI related as patient denies sexual activity in the previous few months; urine GC ordered to r/o- however, even if positive, pt already s/p ceftriaxone x1 and currently on doxy - pt currently on Truvada for PrEP; per chart review, was tested for HIV within the last month and it was neg - symptoms resolved prior to discharge; most likely related to concentrated urine in the setting of dehydration and pancreatitis Elevated troponin 140.5 on admission Denies chest pain; EKG showed sinus tachycardia without acute ischemic changes or evidence of heart block Peaked at 165; Low suspicion for ACS Ulcerative colitis Recently diagnosed, per patient; On mesalamine and budesonide daily prior to hospitalization Last took mesalamine 10/14; continue to hold at this time due to possibly contributing to acute pancreatitis - recommend outpatient GI f/u to determine future tx of UC, until this f/u recommend continuation of budesonide Headache Well-controlled with Tylenol 650 mg every 4 hours Code:Full code Dispo:home FEN/GI:Low fat diet DVT Prophylaxis:none PT/OT:none Consults:None (2) Lyme arthritis: (3) Sepsis: (4) Ulcerative colitis: (5) Dysuria: Total Time Total Time Spent Total Time Spent (In Minutes): <30 Discharge Plan Discharge Items Patient Disposition: Home - Self-Care Reason For Visit: FEBRILE ILLNESS Discharge Diagnosis: acute pancreatitis Activity: Per Instructions section Non-emergency contact: Primary Care Provider and Mortising Machine Operator Call non-emergency contact if: you have any medication questions and your symptoms worsen Follow-up/Referrals: [facility] [Provider Group] (hospital f/u, recent dx of UC, mesalamine stopped d/t possibly causing pancreatitis) [facility] [Primary Care Provider] - Dianne Rojas DO [Resident] - (f/u 1-2 weeks after discharge) Diet: Low Fat Addtl Attending Provider Instructions: You were admitted to the hospital for acute pancreatitis. You were treated with IV fluids and pain medications. Your pain improved and you were tolerating a low fat diet prior to discharge. You should continue to stay well hydrated upon discharge. Avoid alcohol for the next few weeks to months as this can irritate your pancreas. You should also follow a low fat diet for the next 1-2 weeks. A discharge summary will be sent to your primary care physician to ensure continuity of care. Please bring this discharge summary with you to your next office appointment so that your provider can review it at that time. Medications: Your medication list has been reviewed and reconciled upon discharge to ensure accuracy and continuity of care. An updated list of all your medications is included with your hospital discharge paperwork. Please review this list closely and make note of any changes to your medications. - Stop taking your mesalamine as this may have been a cause of your pancreatitis. You should follow up with a GI doctor to discuss further treatment for your ulcerative colitis. Follow up appointments: - Make a follow up appointment with your PCP within the next week. It is very important that you follow up with them shortly after discharge from the hospital. - Keep all of your follow up appointments as already scheduled. If you cannot make an appointment, notify your provider. CONTACT YOUR PRIMARY CARE PROVIDER if you experience any of the following: - Difficulty following your treatment plan - Difficulty taking any of your medications CALL 911 OR GO TO THE EMERGENCY DEPARTMENT if you experience any of the following: - Sudden, severe abdominal pain or nausea/vomiting - Severe chest pain or chest pain that radiates to your jaw or arm - Sudden, severe shortness of breath or difficulty breathing To set up any medical shadowing opportunities that you may be interested in, please email Dr. Ashkan Parisi at [email or web address]. Pending Studies at Discharge: No Stand-Alone Forms: My [facility] Recommend, Work/School Release, Smoking Cessation Medications and DC Order Prescriptions: New oxycodone 5 mg tablet 5 mg PO Q8H PRN (Reason: pain) Qty: 10 0RF Continued acetaminophen [Tylenol Extra Strength] 500 mg Tablet 500 - 1,000 mg PO DIRECTED PRN (Reason: PAIN/FEVER) budesonide 3 mg capsule,delayed,extend.release 9 mg PO QAM emtricitabine-tenofovir (TDF) 200-300 mg tablet 1 tab PO HS doxycycline hyclate 100 mg capsule 100 mg PO BID 14 Days Qty: 28 0RF Discontinued mesalamine 1.2 gram tablet,delayed release (DR/EC) 4.8 g PO QDL Discharge Orders: Discharge Order (Routine); Ordered 10/18/22 Ordered By: Dianne Gonzalez/Other Patient Handouts: Low-Fat Cooking Tips, Pancreatitis Acute Dc Admission Data Admit Date/Time: 10/15/22 21:57 Attending Provider: Ashkan Parisi Admit Provider: Wilton Trujillo Primary Care Provider: [facility] Other Providers: Chet Hopkins Other Interventions: Discharge Summary Assessment (RN) Last Done: 10/18/22 13:09 Supervising Physician Co-Signing Physician Notes I personally examined the patient and verified all costa points of history and e xam, discussed case, and agree with decision making with Dr Rojas abdominal pain has improved (persists but improved), eating better, (+) BM. some burning when urination and a little bit of bloody penile discharge incidentally noted on underwear. no sexual contacts for a few months. Vitals noted, in general he is aao pleasant nad heent nc at mmm abd soft nd (+) epigastric tenderness with mild voluntary guarding far better than yesterday. penis no lesions or skin changes no visible discharge/bleeding Acute pancreatitisdoes not appear to be gallstone or alcohol mediated, triglyceride normal. After review, mesalamine apparently carries about a 1% incidence of pancreatitis, and if it was autoimmune pancreatitis mediated by ulcerative colitis type mechanism, the pancreas would likely appear large overall on imagingmaking mesalamine the most likely. Doxycycline is listed as being able to cause pancreatitis but with no incidence, exceedingly rare, and Lyme only shows pancreatitis and extremely straight case reports (further practicing and central [place], we will utilize doxycycline for a lot of different conditions and treat a lot of Lyme, and neither myself nor my colleagues have ever had a situation that seems consistent with doxycycline or Lyme induced pancreatitis). Fortunately he is doing much bettersafe/stable for home. Close outpatient follow-up (PCP and GI) Lymeafter discussionsresumed doxycycline, tolerating well. Will treat for 14 days Ulcerative colitisstopped mesalamineasked nurse navigator to help facilitate GI follow-up Penile dischargeUA negative, no recent sexual partnerswe both agreed highly unlikely to be an STI, but to be safe GC/chlamydia were sent (even though we both agree it is highly unlikely to be the case)and given the UA being negative even for blood, I am fairly suspicious that he just had very concentrated urine and had a little bit of leakage due to high fluid volume and overall severity of illness. Outpatient follow-up, but likely a closed issue. Resident Activity Tracking Resident Involvement: Resident Care Provided Care Provided: Adult Hospital Medicine
--- NOTE | 2022-10-18 18:45 | Billing Data ---
Date of Service October 18, 2022 Coding Level of Care Code 03375 IN/OBS DISCH 30 MIN/LESS
[2022-10-20 13:48] LABS: Chlam trach RNA(Genit,Ureth,Ur Not Detected (NotDetected); GC(Neis gon)RNA(Genit,Ureth,Ur Not Detected (NotDetected)
[2022-10-20 18:17] LABS: HIV 1 RNA PCR Copies/ML Not Detected Copies/mL; HIV-1 RNA Log Copies/mL Not Detected Log cps/mL
== END 2022-10-18 14:06 | disposition home or self-care (01) | DRG 438 ==
LOC: ED 17:45 → 3W 21:57 → SUATTDRO 21:57 → 3W 23:06